=== PATIENT | male | born 1950 | race Caucasian/White ===

== ENCOUNTER → 2020-09-24 10:08 | Outpatient (BNVA) | payer MEDICARE, OTHER, SELFPAY | PROVIDERS: PCP Internal Medicine; Visit Provider Surgery Vascular Surgery | DX: I83.12 Varicose veins of left lower extremity with inflammation (principal); I71.4 Abdominal aortic aneurysm, without rupture | CPT/HCPCS: 99202 ==

== ENCOUNTER 2020-10-02 08:17 | Outpatient (REF) | payer MEDICARE, OTHER, SELFPAY ==
--- NOTE | 2020-10-02 08:20 | US_ITS ---
EXAMINATION: US RETROPERITONEAL LIMITED (AORTA) CLINICAL INFORMATION: AAA screening. Smoker. COMPARISON: None TECHNIQUE: Beck-scale, color Doppler and spectral Doppler evaluation of the abdominal aorta. FINDINGS: There is mild vessel wall calcification. The aorta is otherwise normal. The measurements of the aorta in maximum AP and transverse dimensions respectively are as follows: Proximal: 3.3 x 3.2 cm. Mid: 2.2 x 2.2 cm. Distal: 2.8 x 2.8 cm. PSV: 90 cm/s. The measurements of the common iliac arteries in maximum AP and TRV dimensions are as follows: AP: Right: 1.4 cm. Left: 1.5 cm. TRANS: Right: 1.8 cm. Left: 2.0 cm. US/US aorta IMPRESSION: No abdominal aortic aneurysm seen. Mild ectasia of the common iliac arteries..
--- NOTE | 2020-10-02 08:20 | US_ITS ---
EXAMINATION: US VENOUS ULTRASOUND WITH DOPPLER LOWER EXTREMITY, BILATERAL CLINICAL INFORMATION: Varicose veins of left lower extremity. COMPARISON: None TECHNIQUE: Ultrasound of the deep veins was performed from the hip to the calf with compression sonography and color and pulse Doppler assessment. Spectral analysis with color-flow imaging is performed. FINDINGS: RIGHT: There is normal venous compression and respiratory variation and augmented flow. The visualized common femoral vein, superficial femoral vein, profunda femoral vein, popliteal vein, and the trifurcation region show no evidence of deep venous thrombosis. There is a 5.6 x 1.4 x 2.9 cm Redmond's cyst. GREAT SAPHENOUS VEIN: The right saphenofemoral junction measures 1 cm. The reflux time is 3312 ms. Proximal thigh measures 0.6 cm. Reflux time is 3272 ms. Mid thigh measures 0.3 cm. No reflux. Above-knee measures 0.2 cm. No reflux. At the knee measures 0.2 cm. No reflux. Great saphenous vein is not well visualized below the knee. SMALL SAPHENOUS VEIN: The upper right small saphenous vein measures 0.2 cm. No reflux. The lower small saphenous vein measures 0.5 cm. No reflux. There are multiple right lower extremity varicose veins including a proximal thigh vein which measures 7 mm in diameter with reflux time 2968 ms and a distal calf varicosity which measures 0.4 cm with reflux time of 2912 ms. The largest varicosity is at the proximal calf and arises from the gastrocnemius vein, measures 1.1 cm in diameter and does not have appreciable reflux. LEFT: There is normal venous compression and respiratory variation and augmented flow. The visualized common femoral vein, superficial femoral vein, profunda femoral vein, popliteal vein, and the trifurcation region shows no evidence of deep venous thrombosis. There is no significant popliteal fossa cyst. GREAT SAPHENOUS VEIN: The left saphenofemoral junction measures 0.7 cm. There is no reflux. Proximal thigh measures 0.5 cm. There is no reflux. Mid thigh measures 0.4 cm. There is no reflux. Above-knee measures 0.2 cm. There is no reflux. At the knee measures 0.2 cm. There is no reflux. Below the knee measures 0.2 cm. There is no reflux. Mid calf measures 0.3 cm. There is no reflux. At the level of the ankle it measures 0.3 cm. There is no reflux. SMALL SAPHENOUS VEIN: The upper left small saphenous vein measures 0.5 cm. There is no reflux. The lower small saphenous vein measures 0.4 cm. There is no reflux. There is a small varicosity at the mid thigh which measures 0.3 cm in diameter with reflux time of 580 ms. At the proximal calf, there is a small varicosity which measures 0.3 cm and does not demonstrate reflux. US/US venous duplex LE BI IMPRESSION: No evidence of deep venous thrombosis or deep venous reflux. There are varicose veins bilaterally, right greater than left. On the right, there is venous reflux within the proximal great saphenous vein and within the described proximal thigh and distal calf varicosities. On the left, there is minimal reflux within a small mid thigh varicosity, otherwise no venous reflux is demonstrated in the left lower extremity. Right-sided 5.6 x 1.4 x 2.9 cm Redmond's cyst.
== END 2020-10-02 08:18 | disposition home or self-care (01) ==
LOC: HO.US 08:17
PROVIDERS: Visit Provider Surgery Vascular Surgery
DX: I83.12 Varicose veins of left lower extremity with inflammation (principal); I83.893 Varicose veins of bilateral lower extremities with other complications; I71.4 Abdominal aortic aneurysm, without rupture
CPT/HCPCS: 76775; 93970

== ENCOUNTER → 2020-10-15 09:02 | Outpatient (BNVA) | payer MEDICARE, OTHER, SELFPAY | PROVIDERS: PCP Internal Medicine; Visit Provider Surgery Vascular Surgery | DX: I71.4 Abdominal aortic aneurysm, without rupture (principal); I83.12 Varicose veins of left lower extremity with inflammation | CPT/HCPCS: 99212 ==

== ENCOUNTER → 2020-10-18 09:09 | Outpatient (BNVA) | payer MEDICARE, OTHER, SELFPAY | PROVIDERS: PCP Internal Medicine; Visit Provider Surgery Vascular Surgery | DX: I83.11 Varicose veins of right lower extremity with inflammation (principal) | CPT/HCPCS: 36482 ==

== ENCOUNTER 2020-10-21 15:07 | Outpatient (REF) | payer MEDICARE, OTHER, SELFPAY ==
--- NOTE | ~2020-10-21 | US_ITS ---
EXAMINATION: US VENOUS ULTRASOUND WITH DOPPLER LOWER EXTREMITY, RIGHT CLINICAL INFORMATION: Post venous seal procedure COMPARISON: Previous exam 10/02/2020 TECHNIQUE: Ultrasound of the deep veins is performed from the hip to the calf with compression sonography and color and pulse Doppler assessment. Spectral analysis with color-flow imaging is performed. FINDINGS: There is normal venous compression and respiratory variation and augmented flow. The visualized common femoral vein, superficial femoral vein, profunda femoral vein, popliteal vein, and the trifurcation region shows no evidence of deep venous thrombosis. There is echogenic material seen in the right greater saphenous vein post vena seal procedure. This is 4.5 cm from the saphenofemoral junction There is no popliteal fossa cyst. US/US venous duplex LE RT IMPRESSION: No DVT demonstrated in the right lower extremity. Echogenic material in the right greater saphenous vein for 0.5 cm from the saphenofemoral junction post venaseal procedure.
== END 2020-10-21 15:08 | disposition home or self-care (01) ==
LOC: HO.US 15:07
PROVIDERS: Visit Provider Surgery Vascular Surgery
DX: M79.604 Pain in right leg (principal)
CPT/HCPCS: 93971

== ENCOUNTER → 2020-10-29 10:11 | Outpatient (BNVA) | payer MEDICARE, OTHER, SELFPAY | PROVIDERS: PCP Internal Medicine; Visit Provider Surgery Vascular Surgery | DX: I83.12 Varicose veins of left lower extremity with inflammation (principal) | CPT/HCPCS: 99212 ==

== ENCOUNTER → 2021-02-06 10:22 | Outpatient (BNVA) | payer MEDICARE, OTHER, SELFPAY | PROVIDERS: PCP Internal Medicine; Visit Provider Surgery Vascular Surgery | DX: I83.12 Varicose veins of left lower extremity with inflammation (principal) | CPT/HCPCS: 99212 ==

== ENCOUNTER 2021-09-26 13:18 | Outpatient (REF) | payer SELFPAY ==
--- NOTE | 2021-09-26 14:16 | MHC.AU.HFU ---
Hearing Instrument Follow-Up- Binaural Date of Visit: 09/26/21 Speech Correction Consultant Used: Not Applicable Follow-Up Summary: Mr. Ruth was seen today to obtain swim plugs. Patient stated he received ear surgery on the left ear canal 45 years prior and has a history of chronic ear infections. Otoscopy revealed a clear right ear canal and slightly occluding cerumen in the left ear along the anterior portion of the canal. Cerumen removal was attempted in the left ear, however, only a small portion of the cerumen could be removed. It was determined that the remaining cerumen would not impact ear impressions. Therefore, ear impressions were taken without incident. Microsonic swim earmolds were ordered. Recommendations: Recommendations: Patient will be contacted when materials have arrived. Please contact our clinic with any questions or concerns. Diagnosis Code(s): Primary Diagnosis: H93.293 Abnormal Auditory Perception Signature: Student/Clinical Fellow: Yes: eJnnie Patino B.A., [employer] Digital Field Service Technician I have reviewed/agreed with student/fellow documentation: Yes Provider: Rossy Malin, [facility]
== END 2021-09-26 13:19 | disposition home or self-care (01) ==
LOC: HO.HAP 13:18
PROVIDERS: Visit Provider Internal Medicine
DX: Z13.89 Encounter for screening for other disorder (principal)

== ENCOUNTER 2021-10-10 09:45 | Outpatient (REF) | payer SELFPAY | END 2021-10-10 09:46 | disposition home or self-care (01) | LOC: HO.HAP 09:45 | PROVIDERS: Visit Provider Internal Medicine | DX: Z01.118 Encounter for examination of ears and hearing with other abnormal findings (principal); H61.22 Impacted cerumen, left ear | CPT/HCPCS: 92700; V5264 ==

== ENCOUNTER 2021-12-26 11:23 | Outpatient (REF) | payer SELFPAY | END 2021-12-26 11:24 | disposition home or self-care (01) | LOC: HO.HAP 11:23 | PROVIDERS: Visit Provider Internal Medicine | DX: Z13.89 Encounter for screening for other disorder (principal) ==

== ENCOUNTER 2022-01-30 10:20 | Outpatient (REF) | payer SELFPAY | END 2022-01-30 10:21 | disposition home or self-care (01) | LOC: HO.HAP 10:20 | PROVIDERS: Visit Provider Internal Medicine | DX: Z13.89 Encounter for screening for other disorder (principal) ==